=== PATIENT | female | born 1935 | race Caucasian/White ===

== ENCOUNTER 2021-03-30 13:30 | Inpatient (IN) | payer MEDICARE, BC ==
[~2021-03-30] VITALS: Ht 147.3 cm; Wt 72.3 kg
[2021-03-30 14:18] LABS: HEMOGLOBIN 14.7 gm/dl (12.3-15.3); RED BLOOD COUNT 4.9 M/UL (4.00-5.10); WHITE BLOOD COUNT 7.3 K/UL (4.5-11.0)
[2021-03-30 14:51] LABS: BUN/CREATININE RATIO 11 (0-10)
[2021-03-30] MEDS ORDERED: ELIQUIS 5 MG TAB5 MG PO (15:49)
[2021-03-30] MEDS ORDERED: TESSALON PERLE100 MG PO (15:50)
[2021-03-30] MEDS ORDERED: TOPROL XL50 MG PO (15:50)
[2021-03-30] MEDS ORDERED: SYNTHROID50 MCG PO (15:51)
[2021-03-30] MEDS ORDERED: FLONASE 0.05% N16 GM (15:51)
[2021-03-30] MEDS ORDERED: LISINOPRIL40 MG PO (15:51)
[2021-03-30] MEDS ORDERED: VITAMIN D325 MCG PO (15:52)
[2021-03-30] MEDS ORDERED: CALCIUM CARBON600 M1 PO (15:53)
[2021-03-30] MEDS ORDERED: GLUCOSAMINE1000 MG PO (15:58)
[2021-03-31 02:37] LABS: HEMOGLOBIN 13.6 gm/dl (12.3-15.3); RED BLOOD COUNT 4.47 M/UL (4.00-5.10); WHITE BLOOD COUNT 6.5 K/UL (4.5-11.0)
[2021-03-31 02:58] LABS: BUN/CREATININE RATIO 14 (0-10)
--- NOTE | 2021-03-31 21:12 | NUR ---
NOTIFIED DR LUCAS ABOUT PTS HEART RATE 135 AND BP OF 75/53. ORDERS RECIEVED AND COMPLETED.
[2021-04-01 03:54] LABS: HEMOGLOBIN 12.7 gm/dl (12.3-15.3); RED BLOOD COUNT 4.23 M/UL (4.00-5.10); WHITE BLOOD COUNT 6.8 K/UL (4.5-11.0)
[2021-04-01 04:14] LABS: BUN/CREATININE RATIO 17 (0-10)
[2021-04-02 03:04] LABS: HEMOGLOBIN 13.7 gm/dl (12.3-15.3); RED BLOOD COUNT 4.63 M/UL (4.00-5.10); WHITE BLOOD COUNT 7.4 K/UL (4.5-11.0)
[2021-04-02 03:23] LABS: BUN/CREATININE RATIO 16 (0-10)
[2021-04-03 03:13] LABS: RED BLOOD COUNT 4.34 M/UL (4.00-5.10); WHITE BLOOD COUNT 8.2 K/UL (4.5-11.0)
[2021-04-03 03:31] LABS: BUN/CREATININE RATIO 16 (0-10)
[2021-04-04 03:53] LABS: HEMOGLOBIN 11.9 gm/dl (12.3-15.3); RED BLOOD COUNT 3.97 M/UL (4.00-5.10); WHITE BLOOD COUNT 8.1 K/UL (4.5-11.0)
[2021-04-04 04:00] LABS: BUN/CREATININE RATIO 14 (0-10)
[2021-04-05 05:09] LABS: BUN/CREATININE RATIO 15 (0-10)
[2021-04-05] MEDS ORDERED: ASPIRIN EC81 MG PO (10:10)
[2021-04-05] MEDS ORDERED: ISOSORBIDE MONO30 MG PO (10:10)
[2021-04-05] MEDS ORDERED: LOPRESSOR 50 MG50 MG PO (10:10)
[2021-04-05] MEDS ORDERED: DILTIAZEM 24HR180 M1 PO (10:10)
== END 2021-04-05 15:19 | disposition home health service (06) | DRG 309 ==
LOC: ER1 13:30 → PROG CARE 15:18 → CDU 15:18 → PROG CARE 03-31 02:45
PROVIDERS: Emergency Medicine; Internal Medicine; Physician Assistant; ADMIT Internal Medicine
PROC: B24BZZ4 Ultrasonography of Heart with Aorta, Transesophageal (ICD-10-PCS; principal; 2021-03-30)
DX: I48.19 Other persistent atrial fibrillation (principal); I20.0 Unstable angina; E87.1 Hypo-osmolality and hyponatremia; Z20.822 Contact with and (suspected) exposure to COVID-19; E03.9 Hypothyroidism, unspecified; I12.9 Hypertensive chronic kidney disease with stage 1 through stage 4 chronic kidney disease, or unspecified chronic kidney disease; N18.9 Chronic kidney disease, unspecified; Z96.652 Presence of left artificial knee joint; E78.5 Hyperlipidemia, unspecified; K21.9 Gastro-esophageal reflux disease without esophagitis; Z79.01 Long term (current) use of anticoagulants; Z85.820 Personal history of malignant melanoma of skin; Z79.82 Long term (current) use of aspirin; Z90.49 Acquired absence of other specified parts of digestive tract; Z90.710 Acquired absence of both cervix and uterus; Z80.1 Family history of malignant neoplasm of trachea, bronchus and lung; Z83.6 Family history of other diseases of the respiratory system
CPT/HCPCS: ECHO; 36415; 71045; 78452; 80048; 80053; 80061; 82550; 82553; 83735; 83874; 83880; 84439; 84443; 84484; 85025; 85379; 93005; 93306; 96374; 97110-GP-CQ; 97116-GP-CQ; 97161; 99285; A9502; G0378; J1160; J1650; J2785; U0002

== ENCOUNTER → 2021-04-25 | Outpatient (CLI) | payer MEDICARE, BC ==
[~2021-04-25] MED LIST: ASPIRIN EC81 MG PO; CALCIUM CARBON600 M1 PO; DILTIAZEM 24HR180 M1 PO; ELIQUIS 5 MG TAB5 MG PO; FLONASE 0.05% N16 GM; GLUCOSAMINE1000 MG PO; ISOSORBIDE MONO30 MG PO; LISINOPRIL40 MG PO; LOPRESSOR 50 MG50 MG PO; SYNTHROID50 MCG PO; TESSALON PERLE100 MG PO; TOPROL XL50 MG PO; VITAMIN D325 MCG PO
== END ==
LOC: HEART 5 15:06
DX: I48.91 Unspecified atrial fibrillation (principal); R00.2 Palpitations

== ENCOUNTER → 2021-08-02 | Outpatient (CLI) | payer MEDICARE, BC | LOC: HEART 5 14:18 | DX: R00.2 Palpitations (principal); R00.1 Bradycardia, unspecified ==

== ENCOUNTER → 2021-08-16 | Outpatient (CLI) | payer MEDICARE, BC | LOC: HEART 5 09:09 | DX: I48.91 Unspecified atrial fibrillation (principal); Z51.81 Encounter for therapeutic drug level monitoring; Z79.899 Other long term (current) drug therapy | CPT/HCPCS: 94010; 94729 ==

== ENCOUNTER 2021-10-13 12:37 | Emergency (ER) | payer MEDICARE, BC ==
[2021-10-13 13:03] LABS: HEMOGLOBIN 13.8 gm/dl (12.3-15.3); RED BLOOD COUNT 4.34 M/UL (4.00-5.10)
[2021-10-13 13:22] LABS: BUN/CREATININE RATIO 17 (0-10)
[2021-10-13 23:17] LABS: BUN/CREATININE RATIO 16 (0-10)
== END 2021-10-14 00:07 | disposition home or self-care (01) ==
LOC: ER1 12:37
PROVIDERS: Family Medicine
DX: E87.1 Hypo-osmolality and hyponatremia (principal); I10 Essential (primary) hypertension; E87.5 Hyperkalemia; I48.91 Unspecified atrial fibrillation; E78.5 Hyperlipidemia, unspecified; E03.9 Hypothyroidism, unspecified; Z88.0 Allergy status to penicillin
CPT/HCPCS: 80048; 80053; 81001; 85025; 99283

== ENCOUNTER → 2022-01-08 | Outpatient (CLI) | payer MEDICARE, BC | LOC: MAMO 12-22 08:30 | DX: Z12.31 Encounter for screening mammogram for malignant neoplasm of breast (principal) | CPT/HCPCS: 77063; 77067 ==

== ENCOUNTER 2022-01-17 23:58 | Inpatient (IN) | payer MEDICARE, BC ==
[~2022-01-17] VITALS: Ht 152.4 cm; Wt 75.3 kg
[~2022-01-17 23:58] MED LIST changes: +GLUCOSAMINE CH1 EACH PO; -GLUCOSAMINE1000 MG PO; -VITAMIN D325 MCG PO; +VITAMIN D350 MC3 PO
[2022-01-18 00:26] LABS: HEMOGLOBIN 13.5 gm/dl (12.3-15.3); RED BLOOD COUNT 4.13 M/UL (4.00-5.10)
[2022-01-18 00:54] LABS: BUN/CREATININE RATIO 26 (0-10)
[2022-01-18] MEDS ORDERED: FUROSEMIDE20 MG PO (09:18)
[2022-01-18] MEDS ORDERED: ALDACTONE 25MG25 MG PO (09:19)
[2022-01-18] MEDS ORDERED: FISH OIL 1,0001 EACH PO (09:20)
[2022-01-18] MEDS ORDERED: METOPROLOL SUCC25 MG PO (09:31)
--- NOTE | 2022-01-18 12:49 | NUR ---
NOTIFIED DR LINDO OF PTS HR IN THE 40'S. PT ASYMPTOMATIC.
[2022-01-18] MEDS ORDERED: ZAROXOLYN/DIUL2.5 MG PO (14:40)
[2022-01-18] MEDS ORDERED: AMIODARONE HCL200 MG PO (14:41)
[2022-01-18] MEDS ORDERED: NITROGLYCERIN0.4 MG SL (14:41)
[2022-01-18] MEDS ORDERED: ISOSORBIDE MONO30 MG PO (14:42)
[2022-01-18] MEDS ORDERED: LISINOPRIL40 MG PO (14:43)
[2022-01-18] MEDS ORDERED: ACETAMINOPHEN650 M1 PO (14:45)
[2022-01-19 03:31] LABS: BUN/CREATININE RATIO 24 (0-10)
--- NOTE | 2022-01-19 05:10 | NUR ---
AT 0415 A NOISE WAS HEARD FROM THE PATIENT'S ROOM. STAFF, INCLUDING BOTH PRIMARY NURSES AND PRIMARY REGIONAL TRAINING MANAGER IMMEDIATELY ENTERED THE ROOM, HAD HEARD THE NOISE FROM THE NURSES STATION. THE PATIENT'S ROOM WAS IN THE DIRECT LINE OF SIGHT OF THE NURSE, WHO SAW THE PATIEMT ROLL OUT OF THE BED. UPON ENTERING THE ROOM, THE PATIENT WAS FOUND SITTING ON THE FLOOR NEXT TO THE BED. APPROPRIATE SIGNAGE WAS UP OUTSIDE OF THE ROOM. PT WAS HELPED BACK IN BED. SHE STATED SHE WAS GOING TO THE BATHROOM AND DID NOT KNOW WHERE SHE WAS. PRIOR TO FALLING ASLEEP, PATIENT WAS ALERT AND ORIENTED X3, HAD USED THE CALL LIGHT FOR HELP TO THE BEDSIDE COMMODE, AND HAD HAD THE BED ALARM ON PREVIOUSLY IN THE NIGHT. AT THE TIME OF THE FALL, THE BED ALARM WAS NOT ON. IMMEDIATELY, PATIENT WAS ASSESSED. SHE HAD A SKIN TEAR ON HER LEFT ARM AND COMPLAINED OF PAIN IN HER LEFT KNEE, WHICH HAD A SMALL BUMP ON IT. MD WAS CALLED AT 0423, WHO ORDERED A HEAD CT WITHOUT CONTRAST AND AN XRAY OF THE LEFT KNEE. FAMILY WAS NOTIFIED AT 0431 OF THE INCIDENT AND THE CONFUSION, DAUGHTER SUNNY. REAL ESTATE ADMINISTRATOR WAS NOTIFED AT 0420. REASSESSMENT WAS DONE UPON RETURNING FROM THE CT. PATIENT WAS ORIENTED AGAIN, KNEW WHERE SHE WAS, WHO SHE WAS, AND WHAT YEAR IT WAS. PATIENT HAD SAID HER KNEE WAS NO LONGER BOTHERING HER. SHE HAD NO OTHER COMPLAINTS. BED ALARM WAS PLACED ON PATIENT WITH THREE SIDE RAILS.
[2022-01-19 23:09] LABS: BUN/CREATININE RATIO 14 (0-10)
[2022-01-20 06:45] LABS: BUN/CREATININE RATIO 11 (0-10)
[2022-01-20 20:14] LABS: BUN/CREATININE RATIO 19 (0-10)
[2022-01-21 05:21] LABS: BUN/CREATININE RATIO 16 (0-10)
[2022-01-21 12:34] LABS: BUN/CREATININE RATIO 18 (0-10)
[2022-01-21 19:13] LABS: BUN/CREATININE RATIO 18 (0-10)
[2022-01-22 05:13] LABS: BUN/CREATININE RATIO 18 (0-10)
[2022-01-22 15:16] LABS: BUN/CREATININE RATIO 25 (0-10)
[2022-01-23 05:14] LABS: BUN/CREATININE RATIO 18 (0-10)
[2022-01-24 02:40] LABS: BUN/CREATININE RATIO 27 (0-10)
[2022-01-24] MEDS ORDERED: ENTRESTO 24 MG1 EACH PO (09:51)
== END 2022-01-24 11:18 | disposition home health service (06) | DRG 640 ==
LOC: ER1 23:58 → CDU 01-18 03:14 → CCU 01-18 03:14 → PROG CARE 01-18 03:14 → CCU 01-20 21:24 → PROG CARE 01-23 19:05
PROVIDERS: Internal Medicine; Internal Medicine Nephrology; ADMIT Internal Medicine
DX: E87.1 Hypo-osmolality and hyponatremia (principal); G93.41 Metabolic encephalopathy; I50.42 Chronic combined systolic (congestive) and diastolic (congestive) heart failure; I48.0 Paroxysmal atrial fibrillation; I11.0 Hypertensive heart disease with heart failure; K21.9 Gastro-esophageal reflux disease without esophagitis; E78.5 Hyperlipidemia, unspecified; E87.6 Hypokalemia; W01.0XXA Fall on same level from slipping, tripping and stumbling without subsequent striking against object, initial encounter; T50.2X5A Adverse effect of carbonic-anhydrase inhibitors, benzothiadiazides and other diuretics, initial encounter; R63.1 Polydipsia; R00.0 Tachycardia, unspecified; E03.9 Hypothyroidism, unspecified; Z96.659 Presence of unspecified artificial knee joint; Z85.828 Personal history of other malignant neoplasm of skin; Z82.49 Family history of ischemic heart disease and other diseases of the circulatory system; Z90.710 Acquired absence of both cervix and uterus; Z90.49 Acquired absence of other specified parts of digestive tract; Z88.0 Allergy status to penicillin; Z80.1 Family history of malignant neoplasm of trachea, bronchus and lung; Z79.82 Long term (current) use of aspirin; Z79.899 Other long term (current) drug therapy
CPT/HCPCS: 36415; 70450; 71045; 73562; 80048; 80053; 80061; 82436; 82533; 82550; 82553; 83930; 83935; 84133; 84295; 84300; 84443; 84484; 85025; 93005; 97116; 97116-GP-CQ; 97162; 97166; 99285; J1940; J2597; J7060; J7131